=== PATIENT | female | born 1950 | race Caucasian/White ===

== ENCOUNTER → 2018-07-15 | Outpatient (CLI) | payer MEDICARE, BC, OTHER ==
--- NOTE | 2018-07-16 09:52 | MAM ---
EXAM DESCRIPTION: 3D Screening BILATERAL : Digital Mammography. CLINICAL HISTORY: 68 years Female SCREENING . No complaints. No personal or family history of breast cancer. Childbirth. Postmenopausal. No HRT. Lifetime risk of developing breast cancer (Tyrer-Cuzick model)(%): 5.0. COMPARISON: Baseline study at this facility. No prior reports available. TECHNIQUE: Bilateral CC and MLO projection full-field images, digital tomosynthesis mammographic technique. Bilateral digital 2-D full-field MLO images. CAD not available for tomosynthesis or 2-D images. FINDINGS: The breast parenchymal density pattern is: Scattered areas of fibroglandular density. No skin thickening or nipple retraction. Bilateral skin moles on the upper breast indicated by skin markers. Circumscribed small soft tissue mass with large calcification mid right breast. Left axillary lymph nodes. No new focal, stellate mass or density, focal asymmetry , and no suspicious microcalcifications bilaterally. IMPRESSION: Benign exam. BIRAD CATEGORY: 2 BENIGN FINDINGS. RECOMMENDATIONS: FOLLOW UP: Routine digital bilateral mammographic screening, one year interval from July 2018. Written communication explaining the IMPRESSION and follow-up, will be mailed to the patient and referring health care provider. According to the [employer], yearly mammograms are recommended starting at age 40 and continuing as long as a woman is in good health. Any breast change noted on a breast self-exam should be reported promptly to the patient's healthcare provider. Breast MRI is recommended for women with an approximately 20-25% or greater lifetime risk of breast cancer, including women with a strong family history of breast or ovarian cancer and women who have been treated for Hodgkin's disease. A negative mammographic report should not delay tissue diagnosis in patients with significant clinical history or physical findings. Extremely dense breast tissue limits the sensitivity of digital mammography. Electronically signed by: Mason Bowling MD 07/16/2018 9:49 AM RADIO TIME SALES SUPERVISOR
== END ==
LOC: MAMMO 07:58
PROVIDERS: ATTEND Family Medicine
DX: Z12.31 Encounter for screening mammogram for malignant neoplasm of breast (principal)

== ENCOUNTER 2018-08-04 03:44 | Emergency (ER) | payer MEDICARE, OTHER ==
[2018-08-04 03:56] VITALS: TEMP 97.3
[2018-08-04] MEDS ORDERED: MECLIZINE HCL 12.5 MG TAB PO ONE (04:25)
[2018-08-04] MEDS ORDERED: diazePAM 5 MG TAB PO ONE (04:25)
--- NOTE | 2018-08-04 04:30 | ED.PDOC ---
History of Present Illness - General Chief Complaint: Neuro Symptoms/Deficits Stated Complaint: dizziness, nausea Time Seen by Provider: 08/04/18 04:03 Source: patient, Vital Signs reviewed Exam Limitations: no limitations - History of Present Illness Initial Comments: c/o "spinning", dizziness. [place] fine when she went to bed. Timing/Duration: 1-3 hours Severity: moderate Episode Description: awoke around 0100 to go to the BR but couldn't raise up due to dizziness. Improving Factors: other - keeping her head in the anatomic position Worsening Factors: movement - particularly as if raising her head off the bed but also if turned on either side Associated Symptoms: nausea/vomiting Allergies/Adverse Reactions: Allergies Meperidine [From Demerol HCl] Allergy (Verified 08/04/18 03:55) Penicillins Allergy (Verified 08/04/18 03:55) Home Medications: Ambulatory Orders Aspirin [Aspirin Adult Low Dose] 81 mg PO DAILY 08/04/18 Cholecalciferol [Vitamin D] 1,000 unit PO 08/04/18 Diazepam 5 mg PO Q12HRS PRN 2 Days #4 con 08/04/18 Losartan Potassium 25 mg PO DAILY 08/04/18 Meclizine HCl [Meclizine 25] 25 mg PO Q8HRS PRN 2 Days #6 tab 08/04/18 Review of Systems - Review of Systems Constitutional: States: no symptoms reported EENTM: States: no symptoms reported Respiratory: States: no symptoms reported Cardiology: States: no symptoms reported Gastrointestinal/Abdominal: States: other - nausea when she attempts to sit up Genitourinary: States: no symptoms reported Musculoskeletal: States: no symptoms reported Skin: States: no symptoms reported Neurological: States: see HPI, headache - mild diffuse headache Endocrine: States: no symptoms reported Hematologic/Lymphatic: States: no symptoms reported Past Medical History (General) - Patient Medical History Hx Seizures: No Hx Stroke: No Hx Dementia: No Hx Asthma: No Hx of COPD: No Hx Cardiac Disorders: No Hx Congestive Heart Failure: No Hx Pacemaker: No Hx Hypertension: Yes Hx Thyroid Disease: No Hx Diabetes: No Hx Gastroesophageal Reflux: No Hx Renal Disease: No Hx Cancer: No Hx Hepatitis C: No Surgical History: appendectomy - Vaccination History Hx Tetanus, Diphtheria Vaccination: No Hx Influenza Vaccination: No Hx Pneumococcal Vaccination: No - Social History Hx Tobacco Use: No Hx Alcohol Use: No Family Medical History - Family History Mother Family History: Unknown Physical Exam - Physical Exam General Appearance: Alert, Comfortable, No apparent distress Eye Exam: bilateral abnormal EOM - nystagmus when gazing right ENT Exam: normal ENT inspection, hearing grossly normal Neck: non-tender, supple Respiratory: no respiratory distress Cardiovascular/Chest: regular rate, rhythm Gastrointestinal/Abdominal: non tender, soft Extremities Exam: non-tender, normal range of motion, no evidence of injury, no edema 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 Now able to sit up without worsening. ASSESSMENT: 68 yo female awoke with positional vertigo. Nystagmus on exam but otherwise nonfocal. Nml head CT. Responded well to meclizine & diazepam. PLAN: 1. Discharge 2. Meclizine & diazepam 3. Fall precautions 4. F/U with PCP - Results/Orders Results/Orders: WBC 11 K 3.5 - EKG/XRAY/CT CT Ordered: Yes - brain - no acute process Departure - Departure Clinical Impression: Vertigo Time of Disposition: 06:10 Disposition: Discharge to Home or Self Care Condition: Good Departure Forms: ED Discharge - Pt. 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
--- NOTE | 2018-08-04 04:59 | CT ---
CLINICAL HISTORY: dizziness COMPARISON: None. 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 FINDINGS: There is no acute hemorrhage, mass effect or midline shift. Isabel-white differentiation is preserved. There is no hydrocephalus. There is no significant volume loss for age. There are mild patchy hypodensities within the periventricular and subcortical white matter, consistent with microangiopathic ischemic changes. The calvarium is intact. Orbits and globes are unremarkable. The paranasal sinuses are clear. Mastoid air cells are clear. IMPRESSION: No acute intracranial findings. Electronically signed by: Mark Mccoy MD 08/04/2018 4:56 AM PHOTOVOLTAIC FABRICATION TECHNICIAN
[2018-08-04 06:31] VITALS: BP 125/69; O2SAT 98
== END 2018-08-04 06:31 | disposition home or self-care (01) ==
LOC: ER 03:44
DX: R42 Dizziness and giddiness (principal); I10 Essential (primary) hypertension; Z79.82 Long term (current) use of aspirin; Z79.899 Other long term (current) drug therapy; Z88.8 Allergy status to other drugs, medicaments and biological substances; Z88.0 Allergy status to penicillin